=== PATIENT | female | born 2000 | race Caucasian/White ===

== ENCOUNTER 2021-09-21 18:35 | Emergency (ER) | payer MEDICAID, SELFPAY ==
--- NOTE | 2021-09-21 19:40 | CT_ITS ---
INDICATION: INJURY EXAMINATION: CT BRAIN - CT Head or Brain W/O Contrast Injection TECHNIQUE: Multiple axial images were obtained of the head without intravenous contrast. A radiation dose optimization technique was used for this scan. IV Contrast dosage and agent: None. COMPARISON: None. FINDINGS: BRAIN PARENCHYMA: No intra- or extra-axial hemorrhage. No intracranial mass or mass effect. Vu/white matter differentiation is maintained and there is no blurring of the basal ganglia. There is no hyperdense vessel. Posterior fossa structures are unremarkable. CSF SPACES: Appropriate for age. No hydrocephalus. Basal cisterns are patent. CALVARIUM, SKULL BASE, PARANASAL SINUSES AND MASTOID AIR CELLS: There is plagiocephaly. Clear. No discrete lytic or blastic abnormalities. ORBITS: Both globes, extraocular muscles, optic nerves and retrobulbar fat appear unremarkable. ASPECTS Score for Acute Strokes: 10 CT/Brain/Head without Contrast IMPRESSION: No acute intracranial injury. Electronically Signed: Jt Mcintyre MD at 22:11 EST ,
--- NOTE | 2021-09-21 22:41 | EDS_ITS ---
DATE OF SERVICE 09/21/21 CHIEF COMPLAINT: Head injury. HISTORY OF PRESENT ILLNESS: This patient is a 21-year-old female who presents with a head injury that occurred 6 days ago. The patient states that she was shoveling snow and went to hang the shovel back up on the hook when it fell and hit her in the head. She states that since that time she has had some problems with stuttering. The patient states that she has a right frontal headache that she describes as dull and aching. She states that it is worsened by lights and sounds. The patient states that nothing seems to help with it. The patient denies any paresthesias or weakness. The patient denies any difficulty ambulating. The patient denies any loss of consciousness with the injury. PAST MEDICAL HISTORY: Denies. PAST SURGICAL HISTORY: Denies. CURRENT MEDICATIONS: None. ALLERGIES: Sulfa. SOCIAL HISTORY: The patient admits to occasional alcohol use. The patient denies smoking or drug use. REVIEW OF SYSTEMS: GENERAL: The patient denies any fevers or chills. EYES: The patient denies blurry vision or diplopia. ENT: The patient admits to a mild sore throat but denies rhinorrhea. CARDIOVASCULAR: Denies chest pain or palpitations. RESPIRATORY: The patient denies any shortness of breath or cough. GI: The patient denies any nausea or vomiting. : The patient denies dysuria or hematuria. MUSCULOSKELETAL: The patient admits to some mild neck pain but denies any back pain. SKIN: The patient denies any rash or boils. NEUROLOGIC: The patient denies any paresthesias or weakness, but admits to a mild headache. ALLERGIES: The patient denies urticaria or swelling. PHYSICAL EXAMINATION: GENERAL: The patient is in no acute distress. VITAL SIGNS: Stable, afebrile. HEENT: Normocephalic. There is mild tenderness over the right frontal area. There is no bony crepitus or step-off. There is no edema or ecchymosis. Pupils are equal, round and reactive to light bilaterally. Extraocular muscles are intact. NECK: Supple. There is full range of motion. There is no tenderness. LUNGS: Clear and equal bilaterally. HEART: Regular rate and rhythm. ABDOMEN: Soft, bowel sounds are normal. There is no tenderness. EXTREMITIES: Intact x4. There is no deformity noted. There is good range of motion. NEUROLOGIC: Cranial nerves II-XII are intact. Strength is 5/5 bilaterally in the upper and lower extremities. There are no sensory deficits noted. GCS is 15. DIAGNOSTIC DATA: CT scan of the brain was obtained. There was no acute intracranial abnormality noted. This was interpreted by the radiologist and removed by me. EMERGENCY DEPARTMENT COURSE AND MEDICAL DECISION MAKING: The patient was advised of the findings. IMPRESSION: Closed head injury. DISPOSITION/PLAN: She was instructed to take Tylenol or ibuprofen as needed for pain. She was instructed to follow up with her primary care physician in 5-7 days. The patient understood and was agreeable with the plan. All questions were answered. The patient was discharged in stable condition.
== END 2021-09-21 19:15 ==
PROVIDERS: Emergency Provider Emergency Medicine; Visit Provider Emergency Medicine
DX: S09.90XA Unspecified injury of head, initial encounter (principal); W20.8XXA Other cause of strike by thrown, projected or falling object, initial encounter; Y93.89 Activity, other specified; Y99.8 Other external cause status
CPT/HCPCS: 70450; 99283

== ENCOUNTER 2021-10-09 16:56 | Emergency (ER) | payer MEDICAID, SELFPAY ==
[2021-10-09 16:57] VITALS: BP 122/78; PULSE 88; RESP 16; TEMP 35.5; O2SAT 95; BMI 35.4
--- NOTE | 2021-10-09 17:50 | RAD_ITS ---
STUDY: X-RAY - RIGHT FOOT CLINICAL: Female, 21 years old. injured right foot while snow tubing last night TECHNIQUE: 3 view(s) of the foot. COMPARISON: None. FINDINGS: Normal talus, calcaneus, and tarsal bones. Normal visualized subtalar, talonavicular, calcaneocuboid, tarsal and tarsometatarsal articulations. Normal metatarsi. Normal metatarsophalangeal joint of the great toe. Normal tibial and fibular sesamoid bones. Normal interphalangeal joint of the great toe. Normal phalanges of the great toe. Normal second through fifth metatarsophalangeal joints. Normal interphalangeal joints and phalanges of the lesser toes. The soft tissue structures are unremarkable. There is no demonstrated fracture. RAD/Foot min 3 Views IMPRESSION: Normal x-ray examination of the foot. Electronically Signed: Abdi Nayak MD at 18:28 EST ,
--- NOTE | 2021-10-09 17:52 | ED.VIS.LOWEX ---
HPI History of Present Illness Chief Complaint: Lower Extremity Injury Informant: patient Narrative Narrative: Here for evaluation right heel injury occurring yesterday while going down to [place] [employer]. States ICE, she planted her heel on the ground she had pain. No twisting injury. No head injuries. No past med history. No history of gastric ulcers or kidney injury. [facility] Home Medications NK 10/09/21 [History Last Taken Unknown] Allergy/AdvReac Type Severity Reaction Status Date / Time sulfite Allergy Rash Verified 10/09/21 16:57 Social History Smoking Status: Never smoker ROS ROS ED Constitutional Constitutional ED: Denies chills, fever(s) or sweats Eyes Eyes: Denies change in vision ENT ENT ED: Denies dysphagia or sore throat Cardiovascular Cardiovascular: Denies chest pain, leg edema, palpitations or racing heartbeat Respiratory/Chest Respiratory/Chest: Denies cough, dyspnea or dyspnea on exertion Gastrointestinal Gastrointestinal: Denies abdominal pain, diarrhea, nausea or vomiting Genitourinary Genitourinary ED: Denies dysuria, hematuria or urinary frequency Musculoskeletal Musculoskeletal: Denies back pain, extremity pain or neck pain Integumentary Denies rash or wounds Neurologic Neurologic: Denies headache(s), paresthesias or weakness EXAM Physical Exam Const Vital Signs: 10/09/21 16:57 Temperature 96 F L Temperature Source Temporal Pulse Rate 88 Respiratory Rate 16 Blood Pressure 122/78 H Blood Pressure Mean 92 Pulse Ox 95 Oxygen Delivery Method Room Air Positive well nourished and well developed General Appearance ED: well developed and NAD HEENT Reports moist mucous membranes normocephalic and atraumatic Eyes PERRL, EOMs intact bilaterally and conjunctivae normal General Eye ED: Yes normal appearance of both eyes Neck no lymphadenopathy and supple General: Negative for tenderness Chest Wall Chest: Negative for tenderness Resp normal respiratory effort and normal air movement Effort and Inspection: symmetric chest movement; Negative for respiratory distress Cardio regular rate, regular rhythm and no murmurs Peripheral Pulses: pulses 2+ throughout GI normal to inspection, nondistended, normoactive bowel sounds and non-tender Palpation: Negative for guarding or rebound tenderness present Back/Spine no CVA tenderness and no thoracic nor lumbar tenderness Extremity Extremity Narrative: Right lower extremity: No knee ankle tenderness or deformities. No swelling. Tender palpation of heel on the lateral aspect there is no ecchymosis. No deformities. No midfoot tenderness. Skin intact. Neuro vas intact distally. General Extremety ED: Negative for edema or tenderness General Extremity: Negative for edema Neuro oriented x3 and no sensory deficits noted Sensorium / Orientation: awake and alert Skin no rashes or lesions noted and no wounds MDM MDM MDM Narrative Medical decision making narrative: Patient declines any medication she is here for imaging for concerns for a heel fracture. X-ray right foot obtained. Radiography Diagnostic Testing: Clinical Impression(s) from Imaging Studies Foot X-Ray 10/09/21 17:50 IMPRESSION: Normal x-ray examination of the foot. Electronically Signed: Abdi Nayak MD at 18:28 EST Reading Location ID and State: [facility] / MD , Service support , Discharge Plan Triage Chief Complaint: Lower Extremity Injury ED Provider: Ramón Todd Dx/Rx/DC Orders Clinical Impression: Contusion of right heel Instructions: ED Foot Contusion Prescriptions: No Action NK RF: 0 Primary Care Provider: Care Physician,No Primary Referrals: Care Physician,No Primary [Primary Care Provider] - Activity Restrictions/Additional Instructions: xray negative. Follow up with your doctor. Disposition Disposition: Home, Self Care Discharge Date/Time: 10/09/21 18:17
== END 2021-10-09 18:17 | disposition home or self-care (01) ==
LOC: ED 18:15
PROVIDERS: Emergency Provider Emergency Medicine; Visit Provider Emergency Medicine
DX: S90.31XA Contusion of right foot, initial encounter (principal); X58.XXXA Exposure to other specified factors, initial encounter
CPT/HCPCS: 73630; 99283